=== PATIENT | female | born 1990 | race American Indian/Alaskan Native ===

== ENCOUNTER 2017-10-20 19:36 | Emergency (ER) | payer OTHER ==
[2017-10-20 20:05] VITALS: BP 132/86
--- NOTE | 2017-10-20 20:47 | Emergency Department Report ---
ED ENT HPI - General Chief complaint: Earache Stated complaint: EAR PAIN Time Seen by Provider: 10/20/17 20:40 Source: patient Mode of arrival: Ambulatory Limitations: No Limitations - History of Present Illness Initial comments: This is a 27 y.o. female that presents with pulsating pain bilaterally that started last night. She is using debrox from [facility] PCP with no improvement of symptoms. Patient has history of cerumen impaction and usually use debrox monthly to clean ears. Reports it usually work but this time she is having pain. Reports having the same symptoms a few months ago and followed up with PCP at [facility]. Denies hearing changes and discharge. MD complaint: ear pain (bilateral) -: Last night Location: R ear, L ear Severity: moderate Severity scale (0 -10): 10 Quality: other (pulsating pain) Consistency: constant Improves with: none Worsens with: swallowing, eating, other (talking) Associated Symptoms: pain with swallowing. denies: fever, cough, gum swelling, toothache, sore throat, tinnitus, hearing loss, discharge from ear, rhinorrhea - Related Data Previous Rx's Medication Instructions Recorded Last Taken Type Amoxicillin [Amoxicillin TAB] 500 mg PO BID 10 Days #20 tablet 10/20/17 Unknown Rx Ibuprofen 800 mg PO Q6H PRN #20 tablet 10/20/17 Unknown Rx Allergies Allergy/AdvReac Type Severity Reaction Status Date / Time No Known Allergies Allergy Unverified 10/20/17 22:04 ED Dental HPI - General Chief complaint: Earache Stated complaint: EAR PAIN Time Seen by Provider: 10/20/17 20:40 Source: patient Mode of arrival: Ambulatory Limitations: No Limitations - Related Data Previous Rx's Medication Instructions Recorded Last Taken Type Amoxicillin [Amoxicillin TAB] 500 mg PO BID 10 Days #20 tablet 10/20/17 Unknown Rx Ibuprofen 800 mg PO Q6H PRN #20 tablet 10/20/17 Unknown Rx Allergies Allergy/AdvReac Type Severity Reaction Status Date / Time No Known Allergies Allergy Unverified 10/20/17 22:04 ED Review of Systems ROS: Stated complaint: EAR PAIN Other details as noted in HPI Constitutional: denies: chills, fever ENT: ear pain (bilateral). denies: throat pain, dental pain, hearing loss, epistaxis, congestion Respiratory: denies: cough, orthopnea, shortness of breath, wheezing Cardiovascular: denies: chest pain, palpitations, orthopnea, edema, syncope Gastrointestinal: denies: abdominal pain, nausea, vomiting, diarrhea, constipation Neurological: denies: headache, weakness, paresthesias Psychiatric: denies: anxiety, depression ED Past Medical Hx - Past Medical History Additional medical history: h/o earwax build up - Surgical History Past Surgical History?: Yes Additional Surgical History: laser sx R foot. L leg fx-plates and screws - Social History Smoking Status: Never Smoker Substance Use Type: Alcohol - Medications Home Medications: Home Medications Medication Instructions Recorded Confirmed Last Taken Type Amoxicillin [Amoxicillin TAB] 500 mg PO BID 10 Days #20 tablet 10/20/17 Unknown Rx Ibuprofen 800 mg PO Q6H PRN #20 tablet 10/20/17 Unknown Rx ED Physical Exam - General Limitations: No Limitations General appearance: alert, in no apparent distress - Eye Eye exam: Present: normal appearance, EOMI Pupils: Present: normal accommodation - ENT ENT exam: Present: mucous membranes moist, other (cerumen impaction bilaterally) - Respiratory Respiratory exam: Present: normal lung sounds bilaterally. Absent: respiratory distress, wheezes, rales, rhonchi, stridor - Cardiovascular Cardiovascular Exam: Present: regular rate, normal rhythm, normal heart sounds. Absent: systolic murmur, diastolic murmur, rubs, gallop - GI/Abdominal GI/Abdominal exam: Present: soft, normal bowel sounds - Neurological Exam Neurological exam: Present: alert, oriented X3 - Psychiatric Psychiatric exam: Present: normal affect, normal mood ED Course Vital Signs 10/20/17 19:54 Temperature 98.3 F Pulse Rate 92 H Respiratory 18 Rate Blood Pressure 132/86 O2 Sat by Pulse 100 Oximetry ED Medical Decision Making - Medical Decision Making This is a 27 y.o. female that presents with bilateral pulsating ear pain for 1 day. She is using debrox with no improvement of symptoms. Patient is stable and was examined by me. Vitals normal. Physical assessment susceptible of bilateral cerumen impaction. Attempt to remove wax with 1/2 peroxide and water irrigation with mild drainage. Both ears remain impacted. Start amoxicillin 500 mg po bid x 10 days, continue debrox drops. Referral to ENT. She is [facility] patient. Advised to f/u with them and given outside ENT. Discussed plan with patient and she agreed with plan. Discharged home in stable condition. Follow up with PCP in 24-72 hours. Critical care attestation.: If time is entered above; I have spent that time in minutes in the direct care of this critically ill patient, excluding procedure time. ED Disposition Clinical Impression: Otalgia of both ears Cerumen impaction Qualifiers: Laterality: bilateral Qualified Code(s): H61.23 - Impacted cerumen, bilateral Disposition: TO HOME OR SELFCARE Is pt being admited?: No Does the pt Need Aspirin: No Condition: Stable Instructions: Earache (ED), Cerumen Impaction (ED) Additional Instructions: Use debrox drops daily to help loosen was. Follow up with ENT in 24-72 hours. Follow up with PCP at [facility] in 24-72 hours. Prescriptions: Amoxicillin [Amoxicillin TAB] 500 mg PO BID 10 Days #20 tablet Ibuprofen 800 mg PO Q6H PRN #20 tablet PRN Reason: Pain Referrals: [facility] [Provider Group] - 3-5 Days ENT [facility] [Provider Group] - 3-5 Days [facility] [Provider Group] - 3-5 Days Time of Disposition: 22:07 Print Language: SAMMARINESE
[2017-10-20] MEDS ORDERED: MOTRIN PO ONE (22:05)
[2017-10-20] MEDS ORDERED: TRIMOX PO ONE (22:05)
== END 2017-10-20 22:18 | disposition home or self-care (01) ==
LOC: ED 19:36
DX: H61.23 Impacted cerumen, bilateral (principal); H92.03 Otalgia, bilateral
CPT/HCPCS: 99282; 99283

== ENCOUNTER 2018-11-23 21:04 | Emergency (ER) | payer OTHER ==
[2018-11-23 21:59] VITALS: BP 151/89
--- NOTE | 2018-11-23 21:59 | Emergency Department Report ---
Chief Complaint: Abdominal Pain Stated Complaint: ABD PAIN PELVIC PAIN Time Seen by Provider: 11/23/18 21:56 - HPI History of Present Illness: This is a 28 y.o. female that presents to the ER with pelvic and low back pain x 3 days. LMP 10/04/18, A0. Admits to nausea, urinary frequency, and pelvic pain. Denies vaginal discharge, vaginal bleeding, or dysuria. - Exam Vital Signs: Vital Signs 11/23/18 21:55 Temperature 98.8 F Pulse Rate 108 H Respiratory 18 Rate Blood Pressure 151/89 O2 Sat by Pulse 98 Oximetry MSE screening note: Focused history and physical exam performed. Due to findings the following was ordered: labs ED Disposition for MSE Condition: Stable Instructions: Abdominal Pain (ED)
[2018-11-23 22:26] LABS: Basophils # (Auto) 0.1 K/mm3 (0.0-0.1); Basophils % (Auto) 0.6 % (0.0-1.8); Eosinophils # (Auto) 0.2 K/mm3 (0.0-0.4); Eosinophils % (Auto) 2.1 % (0.0-4.3); Hematocrit 43.5 % (30.3-42.9); Hemoglobin 14.7 gm/dl (10.1-14.3); Lymphocytes # (Auto) 3.1 K/mm3 (1.2-5.4); Lymphocytes % (Auto) 35.8 % (13.4-35.0); Mean Corpuscular HGB Conc 34 % (30-34); Mean Corpuscular Volume 88 fl (79-97); Monocytes # (Auto) 0.8 K/mm3 (0.0-0.8); Monocytes % (Auto) 9.6 % (0.0-7.3); Platelet Count 363 K/mm3 (140-440); Red Blood Count 4.93 M/mm3 (3.65-5.03)
[2018-11-23 22:44] LABS: Alanine Aminotransferase 18 units/L (7-56); Albumin 4.3 g/dL (3.9-5); BUN/Creatinine Ratio 11; Blood Urea Nitrogen 10 mg/dL (7-17); Calcium 9.6 mg/dL (8.4-10.2); Hemolysis Index 20
[2018-11-24 02:24] LABS: Bilirubin,Urine NEG (Negative); Blood,Urine SM (Negative); Color,Urine Yellow (Yellow); Mucus,Urine FEW /HPF; Protein,Urine <15 mg/dL mg/dL (Negative); Urobilinogen,Urine < 2.0 mg/dL (<2.0)
--- NOTE | 2018-11-24 04:35 | Emergency Department Report ---
ED Female HPI - General Chief complaint: Abdominal Pain Stated complaint: ABD PAIN PELVIC PAIN Time Seen by Provider: 11/23/18 21:56 Source: patient, family Mode of arrival: Ambulatory Limitations: No Limitations - History of Present Illness Initial comments: Pt is a 28 yo female who presents to the ED with c/o pelvic pain that began 3 days ago. She describes the pain as a cramping. She has associated urinary frequency. She denies any dysuria, vaginal discharge, vaginal itching, vaginal burning, or lesions. The patient states that approximately 3-4 years ago she had PID and received tx. She states she previously had gonorrhea or chlamydia but s he was not sure which one. Pt states that her is at bedside asked prior to questioning if she was ok with him being in the room and she stated yes. [facility] oct 04, 2018 - Related Data Previous Rx's Medication Instructions Recorded Last Taken Type Ibuprofen 800 mg PO Q6H PRN #20 tablet 11/24/18 Unknown Rx Allergies Allergy/AdvReac Type Severity Reaction Status Date / Time No Known Allergies Allergy Unverified 10/20/17 22:04 ED Review of Systems ROS: Stated complaint: ABD PAIN PELVIC PAIN Other details as noted in HPI Comment: All other systems reviewed and negative ED Past Medical Hx - Past Medical History Previous Medical History?: Yes Additional medical history: h/o earwax build up - Surgical History Past Surgical History?: Yes Additional Surgical History: laser sx R foot. L leg fx-plates and screws - Social History Smoking Status: Never Smoker Substance Use Type: Alcohol - Medications Home Medications: Home Medications Medication Instructions Recorded Confirmed Last Taken Type Ibuprofen 800 mg PO Q6H PRN #20 tablet 11/24/18 Unknown Rx ED Physical Exam - General Limitations: No Limitations General appearance: alert, in no apparent distress - Head Head exam: Present: atraumatic, normocephalic - Eye Eye exam: Present: normal appearance - ENT ENT exam: Present: mucous membranes moist - Respiratory Respiratory exam: Present: normal lung sounds bilaterally. Absent: respiratory distress, wheezes, rales, rhonchi, stridor, chest wall tenderness, accessory muscle use, decreased breath sounds, prolonged expiratory - Cardiovascular Cardiovascular Exam: Present: regular rate, normal rhythm, normal heart sounds. Absent: systolic murmur, diastolic murmur, rubs, gallop - GI/Abdominal GI/Abdominal exam: Present: soft, normal bowel sounds. Absent: distended, tenderness, guarding, rebound, rigid - External exam: Present: normal external exam. Absent: erythema, swelling, lesions, lacerations, ecchymosis, bleeding Speculum exam: Present: vaginal discharge, cervical discharge, other (small amount of white/prasad discharge from the vaginal canal and cervix, foul smelling). Absent: erythema, vaginal bleeding, foreign body, laceration Bi-manual exam: Present: normal bi-manual exam, other (writing manager: YAMIL doan). Absent: cervical motion tendernes, adnexal tenderness, adnexal mass, uterine enlargement, uterine tenderness - Back Exam Back exam: Absent: CVA tenderness (R), CVA tenderness (L) - Neurological Exam Neurological exam: Present: alert, oriented X3 - Psychiatric Psychiatric exam: Present: normal affect, normal mood - Skin Skin exam: Present: warm, dry, intact ED Course Vital Signs 11/23/18 21:55 Temperature 98.8 F Pulse Rate 108 H Respiratory 18 Rate Blood Pressure 151/89 O2 Sat by Pulse 98 Oximetry ED Medical Decision Making - Lab Data Result diagrams: 11/23/18 22:04 11/23/18 22:04 Lab Results 11/23/18 11/23/18 11/23/18 Range/Units 22:04 22:04 22:04 WBC 8.8 (4.5-11.0) K/mm3 RBC 4.93 (3.65-5.03) M/mm3 Hgb 14.7 H (10.1-14.3) gm/dl Hct 43.5 H (30.3-42.9) % MCV 88 (79-97) fl MCH 30 (28-32) pg MCHC 34 (30-34) % RDW 13.0 L (13.2-15.2) % Plt Count 363 (140-440) K/mm3 Lymph % (Auto) 35.8 H (13.4-35.0) % Gilmer % (Auto) 9.6 H (0.0-7.3) % Eos % (Auto) 2.1 (0.0-4.3) % Baso % (Auto) 0.6 (0.0-1.8) % Lymph # 3.1 (1.2-5.4) K/mm3 Gilmer # 0.8 (0.0-0.8) K/mm3 Eos # 0.2 (0.0-0.4) K/mm3 Baso # 0.1 (0.0-0.1) K/mm3 Seg Neutrophils % 51.9 (40.0-70.0) % Seg Neutrophils # 4.6 (1.8-7.7) K/mm3 Sodium 140 (137-145) mmol/L Potassium 3.9 (3.6-5.0) mmol/L Chloride 102.9 (98-107) mmol/L Carbon Dioxide 24 (22-30) mmol/L Anion Gap 17 mmol/L BUN 10 (7-17) mg/dL Creatinine 0.9 (0.7-1.2) mg/dL Estimated GFR > 60 ml/min BUN/Creatinine Ratio 11 % Glucose 124 H (65-100) mg/dL Calcium 9.6 (8.4-10.2) mg/dL Total Bilirubin 0.20 (0.1-1.2) mg/dL AST 30 (5-40) units/L ALT 18 (7-56) units/L Alkaline Phosphatase 44 (35-129) units/L Total Protein 7.3 (6.3-8.2) g/dL Albumin 4.3 (3.9-5) g/dL Albumin/Globulin Ratio 1.4 % HCG, Qual Negative (Negative) Urine Color (Yellow) Urine Turbidity (Clear) Urine pH (5.0-7.0) Ur Specific Peggs (1.003-1.030) Urine Protein (Negative) mg/dL Urine Glucose (UA) (Negative) mg/dL Urine Ketones (Negative) mg/dL Urine Blood (Negative) Urine Nitrite (Negative) Urine Bilirubin (Negative) Urine Urobilinogen (<2.0) mg/dL Ur Leukocyte Esterase (Negative) Urine WBC (Auto) (0.0-6.0) /HPF Urine RBC (Auto) (0.0-6.0) /HPF U Epithel Cells (Auto) (0-13.0) /HPF Urine Mucus /HPF 11/23/18 Range/Units Unknown WBC (4.5-11.0) K/mm3 RBC (3.65-5.03) M/mm3 Hgb (10.1-14.3) gm/dl Hct (30.3-42.9) % MCV (79-97) fl MCH (28-32) pg MCHC (30-34) % RDW (13.2-15.2) % Plt Count (140-440) K/mm3 Lymph % (Auto) (13.4-35.0) % Gilmer % (Auto) (0.0-7.3) % Eos % (Auto) (0.0-4.3) % Baso % (Auto) (0.0-1.8) % Lymph # (1.2-5.4) K/mm3 Gilmer # (0.0-0.8) K/mm3 Eos # (0.0-0.4) K/mm3 Baso # (0.0-0.1) K/mm3 Seg Neutrophils % (40.0-70.0) % Seg Neutrophils # (1.8-7.7) K/mm3 Sodium (137-145) mmol/L Potassium (3.6-5.0) mmol/L Chloride (98-107) mmol/L Carbon Dioxide (22-30) mmol/L Anion Gap mmol/L BUN (7-17) mg/dL Creatinine (0.7-1.2) mg/dL Estimated GFR ml/min BUN/Creatinine Ratio % Glucose (65-100) mg/dL Calcium (8.4-10.2) mg/dL Total Bilirubin (0.1-1.2) mg/dL AST (5-40) units/L ALT (7-56) units/L Alkaline Phosphatase (35-129) units/L Total Protein (6.3-8.2) g/dL Albumin (3.9-5) g/dL Albumin/Globulin Ratio % HCG, Qual (Negative) Urine Color Yellow (Yellow) Urine Turbidity Clear (Clear) Urine pH 6.0 (5.0-7.0) Ur Specific Peggs 1.030 (1.003-1.030) Urine Protein <15 mg/dl (Negative) mg/dL Urine Glucose (UA) Neg (Negative) mg/dL Urine Ketones Neg (Negative) mg/dL Urine Blood Sm (Negative) Urine Nitrite Neg (Negative) Urine Bilirubin Neg (Negative) Urine Urobilinogen < 2.0 (<2.0) mg/dL Ur Leukocyte Esterase Neg (Negative) Urine WBC (Auto) 2.0 (0.0-6.0) /HPF Urine RBC (Auto) 4.0 (0.0-6.0) /HPF U Epithel Cells (Auto) 6.0 (0-13.0) /HPF Urine Mucus Few /HPF Laboratory Tests 11/23/18 11/23/18 11/23/18 22:04 22:04 22:04 WBC 8.8 RBC 4.93 Hgb 14.7 H Hct 43.5 H MCV 88 MCH 30 MCHC 34 RDW 13.0 L Plt Count 363 Lymph % (Auto) 35.8 H Gilmer % (Auto) 9.6 H Eos % (Auto) 2.1 Baso % (Auto) 0.6 Lymph # 3.1 Gilmer # 0.8 Eos # 0.2 Baso # 0.1 Seg Neutrophils % 51.9 Seg Neutrophils # 4.6 Sodium 140 Potassium 3.9 Chloride 102.9 Carbon Dioxide 24 Anion Gap 17 BUN 10 Creatinine 0.9 Estimated GFR > 60 BUN/Creatinine Ratio 11 Glucose 124 H Calcium 9.6 Total Bilirubin 0.20 AST 30 ALT 18 Alkaline Phosphatase 44 Total Protein 7.3 Albumin 4.3 Albumin/Globulin Ratio 1.4 HCG, Qual Negative Urine Color Urine Turbidity Urine pH Ur Specific Peggs Urine Protein Urine Glucose (UA) Urine Ketones Urine Blood Urine Nitrite Urine Bilirubin Urine Urobilinogen Ur Leukocyte Esterase Urine WBC (Auto) Urine RBC (Auto) U Epithel Cells (Auto) Urine Mucus 11/23/18 Unknown WBC RBC Hgb Hct MCV MCH MCHC RDW Plt Count Lymph % (Auto) Gilmer % (Auto) Eos % (Auto) Baso % (Auto) Lymph # Gilmer # Eos # Baso # Seg Neutrophils % Seg Neutrophils # Sodium Potassium Chloride Carbon Dioxide Anion Gap BUN Creatinine Estimated GFR BUN/Creatinine Ratio Glucose Calcium Total Bilirubin AST ALT Alkaline Phosphatase Total Protein Albumin Albumin/Globulin Ratio HCG, Qual Urine Color Yellow Urine Turbidity Clear Urine pH 6.0 Ur Specific Peggs 1.030 Urine Protein <15 mg/dl Urine Glucose (UA) Neg Urine Ketones Neg Urine Blood Sm Urine Nitrite Neg Urine Bilirubin Neg Urine Urobilinogen < 2.0 Ur Leukocyte Esterase Neg Urine WBC (Auto) 2.0 Urine RBC (Auto) 4.0 U Epithel Cells (Auto) 6.0 Urine Mucus Few Vital Signs 11/23/18 21:55 Temperature 98.8 F Pulse Rate 108 H Respiratory 18 Rate Blood Pressure 151/89 O2 Sat by Pulse 98 Oximetry - Medical Decision Making Pt is a 28 yo female who presents to the ED with c/o pelvic pain that began 3 days ago. She describes the pain as a cramping. She has associated urinary frequency. She denies any dysuria, vaginal discharge, vaginal itching, vaginal burning, or lesions. The patient states that approximately 3-4 years ago she had PID and received tx. She states she previously had gonorrhea or chlamydia but she was not sure which one. Pt states that her is at bedside asked prior to questioning if she was ok with him being in the room and she stated yes. [facility] oct 04, 2018 wet prep shows no yeast, clue cells, or trichomonas. Sent g/c advised pt that the result would not come back today and to check with medical records in one week. pt given tx for G/C while in the ED. on examination no CMT, no adnexal tenderness, no adnexal masses. no abd tenderness on examination, no suprapubic tenderness. UA is normal. labs WNL, no leukocytosis. vitals improved on repeat per nursing staff. discussed with pt if concerned for any other STDs would need to be evaluated at the health department, jewelry racker, or primary care. Discussed with pt to please see a jewelry racker and PCP in the next 2-3 days. Return to the emergency room for any new or worsening symptoms. please have any partner tested and treated as well. - Differential Diagnosis G/C, yeast, trichomonas, BV, pelvic pain Critical care attestation.: If time is entered above; I have spent that time in minutes in the direct care of this critically ill patient, excluding procedure time. ED Disposition Clinical Impression: Pelvic pain Disposition: DC-01 TO HOME OR SELFCARE Is pt being admited?: No Does the pt Need Aspirin: No Condition: Stable Instructions: Chronic Pelvic Pain in Women (ED) Additional Instructions: If concerned for any other STDs would need to be evaluated at the health department, jewelry racker, or primary care. Please see a jewelry racker and PCP in the next 2-3 days. Return to the emergency room for any new or worsening symptoms. please have any partner tested and treated as well. Prescriptions: Ibuprofen 800 mg PO Q6H PRN #20 tablet PRN Reason: Pain Referrals: MADDY GUIDO MD [Primary Care Provider] - 2-3 Days [facility] [Provider Group] - 2-3 Days Time of Disposition: 05:07 Print Language: PALESTINIAN
[2018-11-24] MEDS ORDERED: ROCEPHIN IM ONE (04:37)
[2018-11-24] MEDS ORDERED: XYLOCAINE 1% MPF 5 mL INFILTRATI ONE (04:37)
[2018-11-24] MEDS ORDERED: ZITHROMAX PO ONE (04:38)
== END 2018-11-24 06:00 | disposition home or self-care (01) ==
LOC: ED 21:04
DX: R10.2 Pelvic and perineal pain (principal); R35.0 Frequency of micturition
CPT/HCPCS: 36415; 80053; 81001; 84703; 85025; 87210; 87591; 96372; 99283; J0696